=== PATIENT | female | born 1950 | race Caucasian/White ===

== ENCOUNTER → 2018-01-09 | Outpatient (CLI) | payer OTHER | LOC: EDBD 01-02 10:00 → MAMMO 10:56 | PROVIDERS: ATTEND Internal Medicine | DX: Z12.31 Encounter for screening mammogram for malignant neoplasm of breast (principal) | CPT/HCPCS: 77067 ==

== ENCOUNTER → 2018-03-08 | Outpatient (CLI) | payer OTHER ==
--- NOTE | 2018-03-11 08:20 | Diagnostic Imaging Report ---
#[id number] - USBRELIMLT ULTRASOUND OF THE LEFT BREAST : 03/08/2018 Comparison is made to exams dated: 03/08/2018 mammogram and 01/09/2018 mammogram - [facility]. Outside breast ultrasound dated 11/21/2011 from [facility]. Color flow and real-time ultrasound were performed on the left breast focused to the 7-8 o'clock position. There is a heterogenous area of increased hyperechoic tissue that corresponds to the mammographic finding and appears similar to the outside old ultrasound study. IMPRESSION: BENIGN - FOLLOW-UP RECOMMENDED There is no sonographic evidence of malignancy. A follow-up mammogram in 6 months is recommended to demonstrate stability. The patient was notified of the need for mammographic follow up. Carlin Wu Jr., D.O. cw/:03/08/2018 14:33:16 Research Worker Kitchen: ALEXANDRA GOEL, [facility] letter sent: Normal Exam Ultrasound BI-RADS: 2 Benign
--- NOTE | 2018-03-11 08:20 | Diagnostic Imaging Report ---
#[id number] - MGDXLT #UNILATERAL LEFT DIGITAL DIAGNOSTIC MAMMOGRAM: 03/08/2018 Comparison is made to exam dated: 01/09/2018 mammogram - [facility]. The tissue of the left breast is predominantly fatty. Focal spot compression reveals a persistent finding in the lower inner aspect of the left breast. This appears oblong in shape and a prior mammogram report from [facility] describes a finding c/w fat necrosis (only the report is available but no films are available to compare with). This density has a benign appearance. IMPRESSION: PROBABLY BENIGN A follow-up mammogram in 6 months is recommended to demonstrate stability as this is the only image besides the original 01/09/2018 study with actual images available. The patient was notified of the need for short term interval followup to ascertain stability. Carlin Wu Jr., D.O. cw/:03/08/2018 14:41:04 Outcome Analyst: Lizz GOEL(John)(Breanne), [facility] letter sent: Followup Recommended Mammogram BI-RADS: 3 Probably benign
== END ==
LOC: MAMMO 07:28
PROVIDERS: ATTEND Internal Medicine
DX: N64.89 Other specified disorders of breast (principal)

== ENCOUNTER → 2018-09-30 | Outpatient (CLI) | payer OTHER ==
--- NOTE | 2018-10-01 08:28 | Diagnostic Imaging Report ---
#[id number] - MGDXLT #UNILATERAL LEFT DIGITAL DIAGNOSTIC MAMMOGRAM WITH CAD SHORT-TERM FOLLOW-UP: 09/30/2018 Comparison is made to exams dated: 03/08/2018 ultrasound, 03/08/2018 mammogram and 01/09/2018 mammogram - [facility]. Current study contains 3 films. The tissue of the left breast is predominantly fatty. Current study was also evaluated with a Computer Aided Detection (CAD) system. There is a benign density in the left breast. No significant masses, calcifications, or other findings are seen in the breast. There has been no significant interval change. IMPRESSION: BENIGN There is no mammographic evidence of malignancy. A 1 year screening mammogram is recommended. The patient will be notified by letter of the results. Carlin merrill/magda:09/30/2018 14:11:17 Environmental Director: Lizz GOEL(John)(M), [facility] letter sent: Compared to Prior B9 Mammogram BI-RADS: 2 Benign
== END ==
LOC: MAMMO 11:45
PROVIDERS: ATTEND Internal Medicine
DX: N64.59 Other signs and symptoms in breast (principal)

== ENCOUNTER → 2019-01-10 | Outpatient (CLI) | payer MEDICARE | LOC: MAMMO 08:35 | PROVIDERS: ATTEND Family Medicine | DX: Z12.31 Encounter for screening mammogram for malignant neoplasm of breast (principal) | CPT/HCPCS: 77067 ==

== ENCOUNTER → 2019-03-05 | Outpatient (CLI) | payer OTHER ==
--- NOTE | 2019-03-05 17:29 | Diagnostic Imaging Report ---
EXAM: CHEST 2 VIEWS, PA and lateral DATE: 03/05/2019 Time stamp on exam: 1:38 PM INDICATION: Cough and wheezing COMPARISON: None FINDINGS: LINES/TUBES: None LUNGS: No consolidations or edema. PLEURA: No effusions or pneumothorax. HEART AND MEDIASTINUM: Normal size and contour. Tortuous thoracic aorta. BONES AND SOFT TISSUES: No acute findings. Degenerative changes of the spine. IMPRESSION: No acute thoracic abnormality. Signed by: Dr. Carlin Wu DO on 03/05/2019 5:25 PM
== END ==
LOC: RAD 13:26
PROVIDERS: ATTEND Internal Medicine
DX: R05 Cough (principal); J40 Bronchitis, not specified as acute or chronic
CPT/HCPCS: 71046

== ENCOUNTER → 2019-11-25 | Outpatient (CLI) | payer OTHER ==
--- NOTE | 2019-11-25 11:38 | Diagnostic Imaging Report ---
EXAMINATION: WRIST COMPLETE BILATERAL INDICATION: Trauma COMPARISON: None FINDINGS: Left wrist: No acute fracture or dislocation. Alignment appears anatomic. Mild scattered degenerative changes. The soft tissues appear unremarkable. Right wrist: No acute fracture or dislocation. Alignment appears anatomic. Mild scattered degenerative changes. The soft tissues appear unremarkable. IMPRESSION: No acute osseous injury of either wrist. Signed by: Jocy Faria MD on 11/25/2019 11:35 AM
--- NOTE | 2019-11-25 11:39 | Diagnostic Imaging Report ---
EXAMINATION: HAND THREE VIEWS BILATERAL INDICATION: Trauma COMPARISON: None FINDINGS: Radiographs of both hands demonstrate no acute osseous injury. The soft tissues appear unremarkable. Scattered degenerative changes most notably at the MCP joint of the thumb, right greater than left. Alignment appears anatomic. IMPRESSION: No acute osseous injury. Degenerative changes most notably at the thumb MCP joints, right greater than left. Signed by: Jocy Faria MD on 11/25/2019 11:36 AM
--- NOTE | 2019-11-25 11:41 | Diagnostic Imaging Report ---
EXAMINATION: FOREARM BILATERAL, ELBOW THREE VIEWS BILATERAL INDICATION: Trauma COMPARISON: None FINDINGS: No acute fracture or dislocation of the right or left forearm or elbow. Alignment appears anatomic. No substantial degenerative change. No elbow joint effusion. IMPRESSION: No acute osseous injury of either forearm or elbow. Signed by: Jocy Faria MD on 11/25/2019 11:38 AM
--- NOTE | 2019-11-25 11:46 | Diagnostic Imaging Report ---
EXAMINATION: SHOULDER COMPLETE BILATERAL INDICATION: Trauma COMPARISON: None FINDINGS: Left shoulder: No acute fracture or dislocation. Alignment appears anatomic. Mild glenohumeral and acromioclavicular joint degenerative changes of the partially visualized portions of the lungs are clear. Right shoulder: No acute fracture or dislocation. Alignment appears anatomic. Mild glenohumeral and acromioclavicular joint degenerative changes of the partially visualized portions of the lungs are clear. IMPRESSION: No acute osseous injury of either shoulder. Signed by: Jocy Faria MD on 11/25/2019 11:43 AM
--- NOTE | 2019-11-25 12:18 | Diagnostic Imaging Report ---
EXAMINATION: CERVICAL SPINE 4 OR 5 VIEWS INDICATION: Trauma COMPARISON: None FINDINGS: No acute fracture or dislocation. Mild straightening of the normal cervical lordosis. Prominent multilevel degenerative changes with disc space narrowing and osteophyte formation, most notably at C4-5 and C5-6. Prevertebral soft tissues are normal in thickness. IMPRESSION: No acute osseous injury. Multilevel degenerative changes of the cervical spine. Signed by: Jocy Faria MD on 11/25/2019 12:16 PM
--- NOTE | 2019-11-25 12:19 | Diagnostic Imaging Report ---
EXAMINATION: THORACIC SPINE 2VW INDICATION: Trauma COMPARISON: None FINDINGS: No compression fracture. Vertebral body heights are well-maintained. Alignment appears anatomic. Mild multilevel degenerative changes of the thoracic spine with disc space narrowing and small osteophyte formation. The visualized portions of the lungs are clear. IMPRESSION: No acute osseous injury. Mild degenerative changes of the thoracic spine. Signed by: Jocy Faria MD on 11/25/2019 12:17 PM
--- NOTE | 2019-11-25 12:22 | Diagnostic Imaging Report ---
EXAMINATION: SP LUMBAR, COMPLETE MIN 4VW INDICATION: Trauma COMPARISON: None FINDINGS: No compression fracture. Vertebral body heights are well-maintained. Grade 1 anterolisthesis at L4-5. Mild multilevel degenerative changes with disc space narrowing and small osteophyte formation, most notably at L3-4 and L4-5. Oblique images demonstrate no evidence of spondylolysis. IMPRESSION: No acute osseous injury. Mild degenerative changes as above. Signed by: Jocy Faria MD on 11/25/2019 12:19 PM
== END ==
LOC: RAD 09:42
PROVIDERS: ATTEND Internal Medicine
DX: M54.2 Cervicalgia (principal); M54.6 Pain in thoracic spine; M54.5 Low back pain; M25.512 Pain in left shoulder; M25.511 Pain in right shoulder; M25.522 Pain in left elbow; M25.521 Pain in right elbow; M79.642 Pain in left hand; M79.641 Pain in right hand; M79.632 Pain in left forearm; M79.631 Pain in right forearm; W19.XXXA Unspecified fall, initial encounter
CPT/HCPCS: 72050; 72070; 72110

== ENCOUNTER → 2020-07-30 | Outpatient (CLI) | payer OTHER | LOC: MAMMO 08:28 | PROVIDERS: ATTEND Internal Medicine | DX: Z12.31 Encounter for screening mammogram for malignant neoplasm of breast (principal) | CPT/HCPCS: 77067 ==